=== PATIENT | male | born 1985 | race Asian ===

== ENCOUNTER 2023-08-15 12:38 | Observation (INO) ==
[2023-08-15] MEDS ORDERED: NS 0.9% 1000 ml BAG 1,000 ML IV ONE ×2 (13:32→20:10)
[2023-08-15 13:56] LABS: ABS Monocytes 1.5 10^3/uL (0.0-1.1); ABS Neutrophils 14.9 10^3/uL (1.5-7.6); Hematocrit 31.8 % (38-53); Hemoglobin 10.9 g/dL (13.2-16.3); Lymphocyte % 5.7 %; Mean Corpuscular Hemoglobin 30.3 pg (27-33); Mean Corpuscular Hgb Conc 34.2 g/dL (31-36); Mean Corpuscular Volume 88.6 fL (80-97); Mean Platelet Volume 10.6 fL (7.5-11.2); Platelet Count 225 10^3/uL (150-450); Red Blood Count 3.58 10^6/uL (4.06-5.63); Red Cell Distribution Width 13.7 % (12-17); White Blood Count 17.4 10^3/uL (3.6-10.2)
[2023-08-15 14:05] LABS: INR 1.08 (0.83-1.13)
[2023-08-15 14:17] LABS: Albumin 4.4 g/dL (3.2-5.2); Albumin/Globulin Ratio 1.5 (1-3); Calcium 9.8 mg/dL (8.6-10.3); Creatinine, Serum 0.95 mg/dL (0.67-1.17); Globulin 2.9 g/dL (2-4); Potassium 4.1 mmol/L (3.5-5.0); Total Bilirubin 0.7 mg/dL (0.2-1.0); Total Protein 7.3 g/dL (6.4-8.9); eGFR CKD-EPI 104.4 (>60)
[2023-08-15] MEDS ORDERED: NS 0.9% 500 ml BAG 500 ML IV ONE (14:46)
[2023-08-15] MEDS ORDERED: Lactated Ringers 1000 ml BAG 1,000 ML IV ONE (15:08)
[2023-08-15] MEDS ORDERED: Clindamycin 300 MG/D5W BAG 300 MG/50 ML BAG IV ONE (15:58)
[2023-08-15] MEDS ORDERED: Iohexol 350 (CONTRAST) 500 ML MDV IV ONE (18:03)
[2023-08-15 19:21] LABS: ABS Lymphocytes 1.1 10^3/uL (1.0-4.8); ABS Monocytes 1.4 10^3/uL (0.0-1.1); ABS Neutrophils 7.9 10^3/uL (1.5-7.6); Hematocrit 24.1 % (38-53); Hemoglobin 8.3 g/dL (13.2-16.3); Lymphocyte % 10.7 %; Mean Corpuscular Hemoglobin 30.5 pg (27-33); Mean Corpuscular Hgb Conc 34.5 g/dL (31-36); Mean Corpuscular Volume 88.3 fL (80-97); Mean Platelet Volume 10.4 fL (7.5-11.2); Platelet Count 154 10^3/uL (150-450); Red Blood Count 2.73 10^6/uL (4.06-5.63); Red Cell Distribution Width 13.8 % (12-17); White Blood Count 10.4 10^3/uL (3.6-10.2)
[2023-08-15] MEDS ORDERED: Ondansetron 4 mg VIAL 2 MG/ML 2 ml VIAL IV PRN (19:55)
[2023-08-15] MEDS: NS 0.9% 1000 ml BAG 1,000 ML IV SCH (20:03)
[2023-08-15] MEDS ORDERED: CMCS: Amphetamine/Dextroam ER 10(NF) 10 mg CAP.ER PO PRN (20:09)
[2023-08-15] MEDS: Pantoprazole VIAL 40 MG VIAL IV SCH (22:39)
[2023-08-15] MEDS ORDERED: Clindamycin 900 MG/D5W BAG 900 MG/50 ML BAG IVPB SCH (23:00)
[2023-08-16] MEDS: Clindamycin 900 MG/D5W BAG 900 MG/50 ML BAG IVPB SCH ×3 (05:08→21:54)
[2023-08-16 07:13] LABS: ABS Monocytes 0.9 10^3/uL (0.0-1.1); ABS Neutrophils 5.2 10^3/uL (1.5-7.6); Eosinophil % 0.3 %; Hematocrit 22.9 % (38-53); Hemoglobin 7.9 g/dL (13.2-16.3); Lymphocyte % 24.2 %; Mean Corpuscular Hemoglobin 30.5 pg (27-33); Mean Corpuscular Hgb Conc 34.6 g/dL (31-36); Mean Corpuscular Volume 88.2 fL (80-97); Mean Platelet Volume 10.1 fL (7.5-11.2); Platelet Count 139 10^3/uL (150-450); Red Cell Distribution Width 13.7 % (12-17); White Blood Count 8.1 10^3/uL (3.6-10.2)
[2023-08-16 07:28] LABS: Calcium 8.1 mg/dL (8.6-10.3); Creatinine, Serum 0.82 mg/dL (0.67-1.17); Potassium 3.6 mmol/L (3.5-5.0); eGFR CKD-EPI 114.6 (>60)
[2023-08-16] MEDS: NS 0.9% 1000 ml BAG 1,000 ML IV SCH (07:52)
[2023-08-16] MEDS: Pantoprazole VIAL 40 MG VIAL IV SCH ×2 (09:17→21:53)
[2023-08-17] MEDS: Clindamycin 900 MG/D5W BAG 900 MG/50 ML BAG IVPB SCH (06:04)
[2023-08-17 06:11] LABS: ABS Eosinophils 0.1 10^3/uL (0.0-0.5); ABS Lymphocytes 2.1 10^3/uL (1.0-4.8); ABS Monocytes 0.6 10^3/uL (0.0-1.1); ABS Neutrophils 2.9 10^3/uL (1.5-7.6); Eosinophil % 1.5 %; Hematocrit 22.4 % (38-53); Hemoglobin 7.7 g/dL (13.2-16.3); Lymphocyte % 36.6 %; Mean Corpuscular Hemoglobin 30.6 pg (27-33); Mean Corpuscular Hgb Conc 34.5 g/dL (31-36); Mean Corpuscular Volume 88.7 fL (80-97); Mean Platelet Volume 9.7 fL (7.5-11.2); Platelet Count 146 10^3/uL (150-450); Red Blood Count 2.52 10^6/uL (4.06-5.63); Red Cell Distribution Width 13.8 % (12-17); White Blood Count 5.8 10^3/uL (3.6-10.2)
[2023-08-17] MEDS: Pantoprazole VIAL 40 MG VIAL IV SCH (10:02)
[2023-08-17 10:15] VITALS: BP 114/76
== END 2023-08-17 10:39 | disposition home or self-care (01) ==
LOC: ED 12:38 → EDHOLD 12:38 → SUATTDRO 19:56 → EDHOLD 23:29 → MEDTELE 08-16 00:19
PROVIDERS: ADMIT Internal Medicine; ATTEND Student in an Organized Health Care Education/Training Program